=== PATIENT | female | born 1990 | race Caucasian/White ===

== ENCOUNTER 2016-06-07 16:34 | Emergency (ER) | payer OTHER ==
[2016-06-07 16:48] VITALS: BP 128/76; PULSE 73; RESP 16; TEMP 98.5
--- NOTE | 2016-06-07 17:39 | ED ---
General Adult HPI - General Chief complaint: Abdominal Pain Stated complaint: Poss.hemmroid Time Seen by Provider: 06/07/16 17:18 Source: patient, RN notes reviewed Mode of arrival: ambulatory Limitations: no limitations - History of Present Illness Initial comments: Patient is a 25-year-old female presents to the emergency room for evaluation of rectal pain. Patient states she woke up this morning with pain in the rectum. Patient states she pain every time she wipes her rectum. Patient denies recent straining. Patient denies constipation. Patient denies history of hemorrhoids. Patient denies bleeding per rectum. Patient denies any blood in her stools. Patient states she's been using [id number] remedies for hemorrhoids with no relief of symptoms. Patient states that she is having 10 out of 10 pain. Patient states she has an appointment with her primary care provider tomorrow morning but is in a significant amount of pain. Patient denies fevers, chills, weakness. Patient denies any other symptoms or complaints. - Related Data Home Medications Medication Instructions Recorded Confirmed Albuterol Inhaler [Ventolin 1 - 2 puff INHALATION Q6HR PRN 01/28/15 01/28/15 Inhaler] Beclomethasone Dipropionate [Qvar 2 puff INHALATION BID 01/28/15 01/28/15 40 mcg/puff] Cetirizine HCl [Zyrtec] 10 mg PO DAILY 01/28/15 01/28/15 Ciprofloxacin HCl [Cipro] 500 mg PO Q12HR 01/28/15 01/28/15 Escitalopram [Lexapro] 20 mg PO DAILY 01/28/15 01/28/15 LORazepam [Ativan] 0.5 mg PO DAILY 01/28/15 01/28/15 lamoTRIgine [LaMICtal] 150 mg PO DAILY 01/28/15 01/28/15 predniSONE 40 mg PO DAILY 01/28/15 01/28/15 Previous Rx's Medication Instructions Recorded Ipratropium/Albuterol Sulfate 2 puff INHALATION QID #1 inhaler 01/28/15 [Combivent Respimat Inhaler] predniSONE 40 mg PO DIRECTED #10 tab 01/28/15 Docusate [Colace] 100 mg PO DAILY #10 capsule 06/07/16 HYDROcodone/APAP 5-325MG [[place] 1 tab PO Q6HR PRN #12 tab 06/07/16 5-325] Hydrocortisone [Anusol-Hc] 1 applic RECTAL BID PRN #1 tube 06/07/16 Lidocaine [Lidocaine 5% Rectal 1 applic RECTAL TID PRN #1 tube 06/07/16 Cream] Allergies Allergy/AdvReac Type Severity Reaction Status Date / Time Penicillins Allergy Unknown Verified 06/07/16 16:48 Review of Systems ROS Statement: Those systems with pertinent positive or pertinent negative responses have been documented in the HPI. ROS Other: All systems not noted in ROS Statement are negative. Past Medical History Past Medical History: Asthma History of Any Multi-Drug Resistant Organisms: None Reported Past Surgical History: No Surgical Hx Reported Additional Past Surgical History / Comment(s): r breast cyst removed Past Psychological History: Anxiety, Depression, Panic Disorder, PTSD Smoking Status: Former smoker Past Alcohol Use History: Rare Past Drug Use History: None Reported General Exam - General Exam Comments Initial Comments: Laying in exam room, no acute distress. Limitations: no limitations General appearance: alert, in no apparent distress Head exam: Present: atraumatic, normocephalic, normal inspection Eye exam: Present: normal appearance ENT exam: Present: normal exam Neck exam: Present: normal inspection Respiratory exam: Present: normal lung sounds bilaterally. Absent: respiratory distress Cardiovascular Exam: Present: regular rate, normal rhythm, normal heart sounds GI/Abdominal exam: Present: soft, normal bowel sounds. Absent: distended, tenderness, guarding, rebound, rigid Rectal exam: Present: hemorrhoids (Palpable external hemorrhoid noted. No discoloration. No active bleeding.) Extremities exam: Present: normal inspection Back exam: Present: normal inspection Neurological exam: Present: alert, oriented X3, CN II-XII intact, normal gait Psychiatric exam: Present: normal affect, normal mood Skin exam: Present: warm, dry, intact, normal color. Absent: rash Course Vital Signs 06/07/16 16:44 Temperature 98.5 F Pulse Rate 73 Respiratory 16 Rate Blood Pressure 128/76 O2 Sat by Pulse 99 Oximetry Medical Decision Making - Medical Decision Making Patient is a 25-year-old female since emergency room for evaluation of rectal pain. Patient does have an external hemorrhoid on examination. Will place patient on topical lidocaine and Anusol. Also will sent patient home with pain medications and stool softeners. Patient states she has an appointment with her primary care provider tomorrow morning. Patient states she understands everything that was discussed with her. Return parameters discussed. Case discussed with Dr. Atkins. Disposition Clinical Impression: Hemorrhoid Disposition: HOME SELF-CARE Condition: Good Instructions: Hemorrhoids (ED) Additional Instructions: Apply topical medications as needed. Make sure to take stool softeners along with pain medications. Please follow up with primary care provider in 24-48 hours for reevaluation. If any new symptom arises or symptoms worsen, return to ER as soon as possible. Prescriptions: HYDROcodone/APAP 5-325MG [[place] 5-325] 1 tab PO Q6HR PRN #12 tab PRN Reason: Pain Docusate [Colace] 100 mg PO DAILY #10 capsule Hydrocortisone [Anusol-Hc] 1 applic RECTAL BID PRN #1 tube PRN Reason: Pain Lidocaine [Lidocaine 5% Rectal Cream] 1 applic RECTAL TID PRN #1 tube PRN Reason: Pain Referrals: Tru Edward MD [Primary Care Provider] - 1-2 days Time of Disposition: 17:32
== END 2016-06-07 17:57 | disposition home or self-care (01) ==
LOC: EC 16:34
DX: K64.4 Residual hemorrhoidal skin tags (principal); J45.909 Unspecified asthma, uncomplicated; F32.9 Major depressive disorder, single episode, unspecified; F41.9 Anxiety disorder, unspecified; F41.0 Panic disorder [episodic paroxysmal anxiety]; F43.10 Post-traumatic stress disorder, unspecified; Z87.891 Personal history of nicotine dependence; Z79.51 Long term (current) use of inhaled steroids; Z79.52 Long term (current) use of systemic steroids; Z79.899 Other long term (current) drug therapy; Z88.0 Allergy status to penicillin
CPT/HCPCS: 99283

== ENCOUNTER 2018-08-26 09:36 | Emergency (ER) | payer OTHER ==
[2018-08-26 09:39] VITALS: BP 132/80; PULSE 78; RESP 16; TEMP 97.2
--- NOTE | 2018-08-26 10:07 | ED ---
ENT HPI - General Chief complaint: ENT Stated complaint: SORE THROAT Time Seen by Provider: 08/26/18 09:49 Source: patient, RN notes reviewed, old records reviewed Mode of arrival: ambulatory Limitations: no limitations - History of Present Illness Initial comments: Patient is a 27-year-old female presenting to the emergency room today for evaluation for sore throat, enlarged tonsils. Patient states that she's been having symptoms for the past 3 days. She denies any known chills or fever. Denies any history of sick contacts. Patient states that she's had a history of enlarged tonsils, and has questioned [facility] where she is have them removed. Patient states that she's had no nausea or vomiting, cough. - Related Data Home Medications Medication Instructions Recorded Confirmed Albuterol Inhaler [Ventolin 1 - 2 puff INHALATION RT-Q6H PRN 01/28/15 08/26/18 Inhaler] Albuterol Nebulized [Ventolin 2.5 mg INHALATION RT-Q4H PRN 08/26/18 08/26/18 Nebulized] Ibuprofen [Motrin] 800 mg PO Q6H PRN 08/26/18 08/26/18 Loratadine [Claritin] 10 mg PO DAILY PRN 08/26/18 08/26/18 Previous Rx's Medication Instructions Recorded Azithromycin [Zithromax Z-pack] 250 mg PO DIRECTED #6 tab 08/26/18 methylPREDNISolone Dose Pack 4 mg PO DIRECTED #21 package 08/26/18 [Medrol Dose Pack] Allergies Allergy/AdvReac Type Severity Reaction Status Date / Time Penicillins Allergy Unknown Verified 08/26/18 09:54 Review of Systems ROS Statement: Those systems with pertinent positive or pertinent negative responses have been documented in the HPI. ROS Other: All systems not noted in ROS Statement are negative. Past Medical History Past Medical History: Asthma History of Any Multi-Drug Resistant Organisms: None Reported Past Surgical History: No Surgical Hx Reported Additional Past Surgical History / Comment(s): r breast cyst removed Past Psychological History: Anxiety, Depression, Panic Disorder, PTSD Smoking Status: Former smoker Past Alcohol Use History: Rare Past Drug Use History: None Reported General Exam - General Exam Comments Initial Comments: Pleasant 27-year-old female. Alert and oriented. No distress. Limitations: no limitations General appearance: alert, in no apparent distress Head exam: Present: atraumatic, normocephalic, normal inspection Eye exam: Present: normal appearance, PERRL, EOMI. Absent: scleral icterus, conjunctival injection, periorbital swelling ENT exam: Present: normal exam, mucous membranes moist, other (Cervical lymphadenopathy noted and tenderness or adenopathy.). Absent: normal oropharynx (Patient has erythematous bilateral tonsils, with evidence of white exudate.) Neck exam: Present: normal inspection. Absent: tenderness, meningismus, lymphadenopathy Respiratory exam: Present: normal lung sounds bilaterally. Absent: respiratory distress, wheezes, rales, rhonchi, stridor Cardiovascular Exam: Present: regular rate, normal rhythm, normal heart sounds. Absent: systolic murmur, diastolic murmur, rubs, gallop, clicks GI/Abdominal exam: Present: soft, normal bowel sounds. Absent: distended, tende rness, guarding, rebound, rigid Extremities exam: Present: normal inspection, full ROM, normal capillary refill. Absent: tenderness, pedal edema, joint swelling, calf tenderness Back exam: Present: normal inspection Neurological exam: Present: alert, oriented X3, CN II-XII intact Psychiatric exam: Present: normal affect, normal mood Course Vital Signs 08/26/18 09:37 Temperature 97.2 F L Pulse Rate 78 Respiratory 16 Rate Blood Pressure 132/80 O2 Sat by Pulse 100 Oximetry Medical Decision Making - Medical Decision Making 7-year-old female transverse arm today with complaints of sore throat for the past 3 days. She has erythematous bilateral enlarged tonsils. Evidence of exudates noted. Rapid strep completed. Denies any history of sick contacts. Patient does have some tender anterior cervical lymphadenopathy. Discussed possibility of mono or strep. Patient at this time states she has ALLERGIES to penicillins. For clinical concern for bacterial pharyngitis we'll start the Patient on azithromycin as well as Medrol Dosepak to help with swelling. Discussed appropriate follow-up with primary care doctor and given a referral for ENT. Disposition Clinical Impression: Pharyngitis Disposition: HOME SELF-CARE Condition: Good Instructions (If sedation given, give patient instructions): Pharyngitis (ED) Additional Instructions: Patient has take Motrin Tylenol. Do salt water rinses. Take the steroids and antibiotic as prescribed. Recommended follow-up with ENT and primary care doctor. Prescriptions: methylPREDNISolone Dose Pack [Medrol Dose Pack] 4 mg PO DIRECTED #21 package Azithromycin [Zithromax Z-pack] 250 mg PO DIRECTED #6 tab Is patient prescribed a controlled substance at d/c from ED?: No Referrals: Tru Edward MD [Primary Care Provider] - 1-2 days Time of Disposition: 10:05
== END 2018-08-26 10:43 | disposition home or self-care (01) ==
LOC: EC 09:36
DX: J02.9 Acute pharyngitis, unspecified (principal); J45.909 Unspecified asthma, uncomplicated; Z87.891 Personal history of nicotine dependence; Z88.0 Allergy status to penicillin
CPT/HCPCS: 87081; 87430; 99283

== ENCOUNTER → 2021-06-19 | Outpatient (CLI) | payer OTHER ==
--- NOTE | 2021-06-20 07:09 | MR ---
EXAMINATION TYPE: MR knee LT wo con DATE OF EXAM: 06/19/2021 COMPARISON: Outside left knee x-ray June 06, 2021 HISTORY: Left knee pain x 2 years, recently getting worse. TECHNIQUE: Multiplanar, multisequence imaging of the left knee is performed without IV contrast. FINDINGS: Suboptimal study due to body habitus. MEDIAL MENISCUS: Anterior and posterior horns are intact without tear. LATERAL MENISCUS: Anterior and posterior horns are intact without tear. CRUCIATE LIGAMENTS: The posterior cruciate ligament is intact and unremarkable. Anterior cruciate lig ament is thinned but remains intact COLLATERAL LIGAMENTS: The medial collateral ligament and lateral collateral ligament complex are inta ct and unremarkable. EXTENSOR MECHANISM: Visualized quadriceps and patellar tendons are intact. EFFUSION: No significant suprapatellar joint effusion. POPLITEAL CYST: No popliteal/benitez cyst. TRICOMPARTMENT SPACES: Mild to moderate narrowing with mild spurring patellofemoral compartment. Mild narrowing medial tibiofemoral compartment. CARTILAGE: Early chondromalacia patella along posterior patellar pole at the site of most prominent j oint space narrowing. BONE MARROW SIGNAL: Marked heterogeneity consistent with red marrow reconversion. OTHER: No additional significant abnormality is appreciated. IMPRESSION: Suboptimal study. No meniscal or ligamentous tear is clearly seen. Mild to moderate trico mpartment degenerative changes somewhat prominent for patient's chronologic age. Evidence of red jeaneth ow reconversion noted.
== END | disposition home or self-care (01) ==
LOC: RADMRIMAIN 17:05
PROVIDERS: ATTEND Orthopaedic Surgery
DX: M25.562 Pain in left knee (principal)

== ENCOUNTER 2022-01-30 06:13 | Day surgery (SDC) | payer OTHER ==
[2022-01-25 10:38] VITALS: BMI 50.5
--- NOTE | 2022-01-30 03:38 | HP ---
HISTORY AND PHYSICAL DATE OF SURGERY: 01/30/2022 HISTORY OF PRESENT ILLNESS: The patient is a 31-year-old 1, para 1-0-0-1, who presents to the office with a several-year history of both heavy and irregular bleeding. She has had multiple different attempts to control this hormonally and has now requested more definitive therapy. She is not in need of contraception as she is in a same-sex relationship. We discussed options and she has agreed to proceed towards diagnostic hysteroscopy with NovaSure endometrial ablation. PAST MEDICAL HISTORY: Significant for anxiety, asthma, bipolar disorder, cyclothymia, history of uterine fibroids, obesity, and posttraumatic stress disorder. PAST SURGICAL HISTORY: Significant only for cystectomy. OBSTETRICAL HISTORY: 1, para 1-0-0-1 with 1 term delivery without complications. Current method of contraception is same-sex relationship. She has been on oral contraceptives as well as Depo-Provera, which have failed to control her bleeding. GYNECOLOGIC HISTORY: Unremarkable except as noted in history of present illness. FAMILY HISTORY: Noncontributory. SOCIAL HISTORY: The patient is single. MEDICATIONS: Inhaler 2 puffs as indicated every 4 hours as needed. ALLERGIES: Penicillins. REVIEW OF SYSTEMS: Confined to history of present illness. PHYSICAL EXAMINATION: VITAL SIGNS: Stable. The patient is afebrile. GENERAL: This is a vggxcbjp-db-edvichev obese female, in no acute distress. HEART: Has a regular rhythm and rate without murmur. LUNGS: Clear to auscultation bilaterally in all torres. ABDOMEN: Obese, nondistended, soft, nontender, without any palpable masses, hepatosplenomegaly, or hernias. EXTREMITIES: Without any cyanosis, clubbing, or edema and are nontender to palpation bilaterally. PELVIC: Demonstrates normal external genitalia and BUS with normal vaginal mucosa and cervix. There is no cervical motion tenderness. Uterus is approximately 4 to 5 weeks in size, mobile, nontender, normal in shape. I was unable to exam to document or make note of the fibroids for which she has been diagnosed on ultrasound. ASSESSMENT AND PLAN: Menometrorrhagia: As she has failed medical intervention, she has now requested a more definitive approach. We have opted to proceed with diagnostic hysteroscopy with NovaSure endometrial ablation. The risks and complications of these procedures were discussed at length including risk for bleeding, bleeding requiring transfusion, infection, and injury to local structures to specifically include uterine perforation, Asherman syndrome, and potential hematometra. She has understood all of this and agrees to proceed. We are scheduled for the morning of January 30, 2022 for the procedures as outlined above. MMODL / IJN: [id number] /
[~2022-01-30 06:13] MED LIST: Pre Op ABX Message 1 EACH MISC MISCELLANE ONE
[2022-01-30] MEDS ORDERED: LACTATED RINGERS 1,000 ML IV ONE (07:00)
[2022-01-30] MEDS ORDERED: ONDANSETRON 4 MG/2 ML VIAL ONE (07:02)
[2022-01-30] MEDS ORDERED: DEXAMETHASONE SOD PHOSPHATE 4 MG/ML 1 ML VIAL IVP ONE (07:13)
[2022-01-30] MEDS ORDERED: ONDANSETRON 4 MG/2 ML VIAL IVP ONE (07:13)
[2022-01-30] MEDS ORDERED: fentaNYL (PF) 50 MCG/ML 2 ML AMP ONE (07:28)
[2022-01-30] MEDS ORDERED: SUCCINYLCHOLINE CHLORIDE 200 MG/10 ML VIAL IV ONE (07:28)
[2022-01-30] MEDS ORDERED: PROPOFOL 10 MG/ML 20 ML VIAL IV ONE (07:28)
[2022-01-30] MEDS ORDERED: ALBUTEROL HFA INHALER INHALATION ONE (07:28)
[2022-01-30] MEDS ORDERED: MIDAZOLAM 2 MG/2 ML VIAL ONE (07:28)
[2022-01-30] MEDS ORDERED: LIDOCAINE 2% INJ 20 MG/ML (2 ML VIAL) ONE (07:28)
[2022-01-30] MEDS ORDERED: KETOROLAC 15 MG/ML 1 ML VIAL ONE (07:28)
[2022-01-30] MEDS ORDERED: KETOROLAC 15 MG/ML 1 ML VIAL IVP PRN (08:03)
[2022-01-30] MEDS ORDERED: IBUPROFEN 600 MG TAB PO PRN (08:03)
[2022-01-30] MEDS ORDERED: METOCLOPRAMIDE 5 MG/ML 2 ML VIAL IVP PRN (08:03)
[2022-01-30] MEDS ORDERED: ONDANSETRON 4 MG/2 ML VIAL IVP PRN (08:03)
[2022-01-30] MEDS ORDERED: diphenhydrAMINE 50 MG/ML 1 ML VIAL IVP PRN (08:03)
[2022-01-30] MEDS ORDERED: SIMETHICONE 80 MG CHEWABLE PO PRN (08:03)
[2022-01-30] MEDS ORDERED: Acetaminophen-Codeine 300-30mg TAB PO PRN ×2 (08:03)
--- NOTE | 2022-01-30 08:13 | P.OP ---
Date of Procedure: 01/30/22 Preoperative Diagnosis: #1. Menometrorrhagia #2. Uterine fibroids Postoperative Diagnosis: Same Procedure(s) Performed: #1. Diagnostic hysteroscopy #2. Dilation and curettage #3. NovaSure endometrial ablation Anesthesia: UGO Surgeon: Demetrio Lyons Estimated Blood Loss (ml): 5 IV fluids (ml): 300 Urine output (ml): 50 Pathology: other (Endometrial curettings) Condition: stable Disposition: PACU Operative Findings: Preoperative pelvic examination demonstrated a roughly 5 week midplane mobile normal shaped uterus with a palpable 3-4 cm anterior low fundal subserosal fibroid. Intraoperatively, the uterus sounded to approximately 10 cm with a cervical length of approximate 4 cm. Using the hysteroscope, the bilateral tubal ostia were seen. There was also a number of shaggy areas of the endometrium and potentially polypoid structures ending to adding D&C to the procedure. There was not a significant amount of tissue removed on curettage and the typical gritty texture was encountered throughout. The settings for the NovaSure tool where a length of 6.0 cm, a width of 4.6 cm for a total power of 152 W. After a total run time of 76 seconds, the base unit read "procedure complete." The postprocedural hysteroscopic result appeared to be excellent. The patient is a borderline candidate for vaginal hysterectomy should it become necessary in the future, perhaps a better candidate for da Magaly approach. Description of Procedure: The patient was prepped and draped in usual fashion after general endotracheal anesthesia was administered by the anesthesiologist. A weighted speculum was placed in the bladder draining approximately 50 mL of clear rhina urine. The anterior lip of the cervix was grasped with single-tooth tenaculum and uterus sounded to 10 cm with a cervical length of approximate 4 cm. Serial dilation was carried out to admit the diagnostic hysteroscope which was placed into the cavity and the cavity distended with saline. The findings were as noted above with the moderate amount of shaggy tissue primarily arising from the posterior wall of the uterus and some possible polypoid appearing structures as well. The bilateral tubal ostia were seen. After adequate hysteroscopy been carried out, the scope was set aside and a medium sharp curette was introduced into the cavity. Thorough and circumferential curettage was carried out onto a Telfa placed in the vagina with a small to moderate amount of tissue being produced. Polyp forceps failed to produce any further tissue. The sharp curet was replaced with the NovaSure tool which was placed into the endometrial cavity, opened, and seated well. The settings were as noted above with a length of 6.0 cm, a width of 4.6 cm for a total power 152 W. The cavity check was attempted and passed without difficulty. The tool was enabled and the run was started. After total run time of 76 seconds, the base unit read "procedure complete." The 2 was closed, removed, and discarded. The diagnostic scope was replaced within the cavity and the result appeared to be excellent. All instrumentation was then removed. There was no ongoing bleeding from either the tenaculum site or the cervix itself. The patient is a borderline candidate for vaginal hysterectomy and might S/P approach with da Magaly should become necessary in the future. Estimated blood loss for the entire case was 5 mL or less. There were no complications. All sponge, instrument, needle counts were correct. The patient tolerated the procedure well and proceeded to the recovery room in stable condition.
[2022-01-30] MEDS ORDERED: LACTATED RINGERS 1,000 ML IV SCH (08:15)
[2022-01-30] MEDS ORDERED: HYDROmorphone 0.5 MG/0.5 ML SYRINGE IVP ONE ×2 (08:15→08:40)
[2022-01-30 08:30] VITALS: TEMP 97.9
[2022-01-30 09:25] VITALS: BP 121/80; PULSE 72; RESP 18
[2022-01-31] MEDS ORDERED: ACETAMINOPHEN TAB 325 MG TAB PO PRN (08:04)
== END 2022-01-30 09:43 | disposition home or self-care (01) ==
LOC: OR 06:13
PROVIDERS: ATTEND Obstetrics & Gynecology
DX: D25.9 Leiomyoma of uterus, unspecified (principal); N92.1 Excessive and frequent menstruation with irregular cycle; F41.9 Anxiety disorder, unspecified; J45.909 Unspecified asthma, uncomplicated; F31.9 Bipolar disorder, unspecified; E66.9 Obesity, unspecified; F34.0 Cyclothymic disorder; F43.10 Post-traumatic stress disorder, unspecified; Z98.890 Other specified postprocedural states; Z88.0 Allergy status to penicillin; Z79.890 Hormone replacement therapy
CPT/HCPCS: 81025; 88305; 58563; J2250; J0330; J1100; J2405; J3010; J1885; J2704; J1170; J2001